=== PATIENT | male | born 1965 | race Two or more races ===

== ENCOUNTER 2022-12-11 08:10 | Emergency (ER) | payer MEDICAID ==
[~2022-12-11] VITALS: Ht 162.6 cm; Wt 81.7 kg
[2022-12-11 08:35] VITALS: BP 142/97
[2022-12-11] MEDS ORDERED: IBUP800T27 PO (09:00)
[2022-12-11] MEDS ORDERED: PRED20TA2 PO (09:00)
[2022-12-11] MEDS ORDERED: AMOX500C2 PO (09:00)
== END 2022-12-11 09:22 | disposition home or self-care (01) ==
LOC: ER 08:10
DX: J32.9 Chronic sinusitis, unspecified (principal); I10 Essential (primary) hypertension
CPT/HCPCS: 70450